=== PATIENT | male | born 1990 | race Caucasian/White ===

== ENCOUNTER → 2018-01-06 | Outpatient (CLI) | payer OTHER ==
--- NOTE | 2018-01-06 19:26 | US ---
EXAMINATION TYPE: US abdomen limited DATE OF EXAM: 01/06/2018 COMPARISON: NONE CLINICAL HISTORY: R10.84 ABD PAIN. Patient has a palpable lump just inferior to the sternum at the mi d epigastric region. No obvious mass visualized at the area of the patient's palpable. There is prominent tissue visualize d, possible normal muscle vs other IMPRESSION: The area of interest was scanned and no discrete solid or cystic masses identified.
== END | disposition home or self-care (01) ==
LOC: RADUSWWP 16:23
PROVIDERS: ATTEND Family Medicine
DX: R10.84 Generalized abdominal pain (principal); R19.06 Epigastric swelling, mass or lump
CPT/HCPCS: 76705

== ENCOUNTER → 2018-01-27 | Outpatient (CLI) | payer OTHER ==
--- NOTE | 2018-01-28 07:56 | CT ---
EXAMINATION TYPE: CT abdomen pelvis w con DATE OF EXAM: 01/27/2018 COMPARISON: None HISTORY: abdominal mass just below sternum CT DLP: 1395.2 mGycm CONTRAST: CT scan of the abdomen and pelvis is performed with Oral Contrast and with IV Contrast, patient injec sasha with 100 mL of Isovue 300. FINDINGS: LUNG BASES-: No visible nodule. No infiltrate. LIVER/GB: Fatty hepatic infiltration noted. No calcified gallstones. No space occupying hepatic les ion. Biliary tree is of normal caliber. PANCREAS: No inflammation. No distinct mass. SPLEEN: No splenic enlargement. No lesion seen. ADRENALS: No nodule. No thickening. KIDNEYS/BLADDER: No hydronephrosis. No nephrolithiasis. No distinct renal mass. Urinary bladder g rossly unremarkable. BOWEL: Normal appendix. Normal bowel caliber. No inflammation. GENITAL ORGANS: No gross abnormality. LYMPH NODES: No greater than 1cm abdominal or pelvic lymph nodes are appreciated. AORTA: No significant abnormality. OSSEOUS STRUCTURES: No significant abnormality is seen. OTHER: No significant additional abnormality is seen. IMPRESSION: 1. Hepatic steatosis. Otherwise unremarkable study.
== END | disposition home or self-care (01) ==
LOC: RADCTMAIN 15:02
PROVIDERS: ATTEND Family Medicine
DX: K76.0 Fatty (change of) liver, not elsewhere classified (principal)
CPT/HCPCS: 74177; Q9967